=== PATIENT | female | born 1970 | race Caucasian/White ===

== ENCOUNTER 2020-07-28 19:58 | Inpatient (IN) | payer OTHER ==
[~2020-07-28] VITALS: Ht 167.6 cm; Wt 50.3 kg
[2020-07-28 23:33] LABS: HEMOGLOBIN 16.4 gm/dl (12.3-15.3); RED BLOOD COUNT 5.42 M/UL (4.00-5.10); WHITE BLOOD COUNT 9.6 K/UL (4.5-11.0)
[2020-07-28 23:48] LABS: BUN/CREATININE RATIO 12 (0-10)
[2020-07-29] MEDS ORDERED: VITAMIN D21250 MCG PO (08:43)
[2020-07-29] MEDS ORDERED: LEVOTHYROXINE150 MCG PO (08:44)
[2020-07-29] MEDS ORDERED: HYDROCODON-ACE1 EAC2 PO (08:44)
[2020-07-29] MEDS ORDERED: HYDROCORTISONE5 MG PO ×2 (08:45→08:46)
[2020-07-29] MEDS ORDERED: CITALOPRAM HBR10 MG PO (08:46)
[2020-07-29] MEDS ORDERED: TIZANIDINE HCL4 MG PO (08:47)
[2020-07-30 02:52] LABS: HEMOGLOBIN 13.6 gm/dl (12.3-15.3); RED BLOOD COUNT 4.59 M/UL (4.00-5.10); WHITE BLOOD COUNT 4.8 K/UL (4.5-11.0)
[2020-07-30 03:50] LABS: BUN/CREATININE RATIO 22 (0-10)
[2020-07-31 03:15] LABS: HEMOGLOBIN 12.1 gm/dl (12.3-15.3)
[2020-07-31 03:17] LABS: RED BLOOD COUNT 4.09 M/UL (4.00-5.10); WHITE BLOOD COUNT 9.8 K/UL (4.5-11.0)
[2020-07-31 03:29] LABS: BUN/CREATININE RATIO 26 (0-10)
[2020-07-31] MEDS ORDERED: ZITHROMAX500 MG PO (13:33)
[2020-07-31] MEDS ORDERED: CEFPODOXIME PR200 MG PO (13:33)
== END 2020-07-31 16:01 | disposition home or self-care (01) | DRG 189 ==
LOC: ER1 19:58 → CDU 07-29 03:16 → M/S 07-29 13:57
PROVIDERS: Internal Medicine; Physician Assistant; Physician Assistant Medical; ADMIT Internal Medicine
PROC: 8E0ZXY6 Isolation (ICD-10-PCS; principal; 2020-07-29)
DX: J96.01 Acute respiratory failure with hypoxia (principal); J18.9 Pneumonia, unspecified organism; Z68.1 Body mass index [BMI] 19.9 or less, adult; E27.40 Unspecified adrenocortical insufficiency; J43.2 Centrilobular emphysema; E87.6 Hypokalemia; Z20.822 Contact with and (suspected) exposure to COVID-19; R63.6 Underweight; E03.9 Hypothyroidism, unspecified; F41.9 Anxiety disorder, unspecified; F32.9 Major depressive disorder, single episode, unspecified; K76.0 Fatty (change of) liver, not elsewhere classified; Z86.718 Personal history of other venous thrombosis and embolism; Z79.01 Long term (current) use of anticoagulants; Z85.820 Personal history of malignant melanoma of skin; Z90.49 Acquired absence of other specified parts of digestive tract; Z90.710 Acquired absence of both cervix and uterus; Z88.0 Allergy status to penicillin; Z88.8 Allergy status to other drugs, medicaments and biological substances; Z88.1 Allergy status to other antibiotic agents; Z87.891 Personal history of nicotine dependence
CPT/HCPCS: 0240U; 36415; 36600; 71045; 80048; 80053; 82550; 82553; 82803; 83605; 84484; 85025; 85379; 87040; 93005; 94640; 94664; 94760; 96365; 96366; 96375; 99285; J0456; J0696; J1100; J1335; J1650; J2405; J7030; Q9967; U0002

== ENCOUNTER 2021-03-19 19:59 | Inpatient (IN) | payer OTHER ==
[~2021-03-19] VITALS: Ht 167.6 cm; Wt 45.8 kg
[~2021-03-19 19:59] MED LIST: CEFPODOXIME PR200 MG PO; CITALOPRAM HBR10 MG PO; HYDROCODON-ACE1 EAC2 PO; HYDROCORTISONE5 MG PO; LEVOTHYROXINE150 MCG PO; TIZANIDINE HCL4 MG PO; VITAMIN D21250 MCG PO; ZITHROMAX500 MG PO
[2021-03-19 21:03] LABS: HEMOGLOBIN 14.8 gm/dl (12.3-15.3); RED BLOOD COUNT 4.97 M/UL (4.00-5.10); WHITE BLOOD COUNT 15.8 K/UL (4.5-11.0)
[2021-03-19 21:17] LABS: BUN/CREATININE RATIO 17 (0-10)
[2021-03-20 07:41] LABS: HEMOGLOBIN 13.7 gm/dl (12.3-15.3); WHITE BLOOD COUNT 17.8 K/UL (4.5-11.0)
[2021-03-20 07:42] LABS: RED BLOOD COUNT 4.47 M/UL (4.00-5.10)
[2021-03-20 08:16] LABS: BUN/CREATININE RATIO 17 (0-10)
[2021-03-21 06:55] LABS: RED BLOOD COUNT 3.94 M/UL (4.00-5.10)
[2021-03-21 07:39] LABS: BUN/CREATININE RATIO 7 (0-10)
[2021-03-22 06:53] LABS: HEMOGLOBIN 11.3 gm/dl (12.3-15.3); RED BLOOD COUNT 3.66 M/UL (4.00-5.10)
[2021-03-22 07:04] LABS: WHITE BLOOD COUNT 5.6 K/UL (4.5-11.0)
[2021-03-22 08:29] LABS: BUN/CREATININE RATIO 6 (0-10)
[2021-03-23 07:57] LABS: HEMOGLOBIN 11.8 gm/dl (12.3-15.3)
[2021-03-23 08:02] LABS: WHITE BLOOD COUNT 3.9 K/UL (4.5-11.0)
[2021-03-23 08:09] LABS: BUN/CREATININE RATIO 5 (0-10)
[2021-03-23] MEDS ORDERED: OMNICEF 300 MG300 MG PO (12:21)
== END 2021-03-23 14:10 | disposition home or self-care (01) | DRG 871 ==
LOC: ER1 19:59 → CDU 03-20 08:23 → M/S 03-20 17:25
PROVIDERS: Emergency Medicine; Physician Assistant Medical; ADMIT Internal Medicine
DX: A41.9 Sepsis, unspecified organism (principal); J18.9 Pneumonia, unspecified organism; G93.41 Metabolic encephalopathy; E27.40 Unspecified adrenocortical insufficiency; E87.2 Acidosis; E44.0 Moderate protein-calorie malnutrition; Z68.1 Body mass index [BMI] 19.9 or less, adult; E87.6 Hypokalemia; R63.6 Underweight; Z20.822 Contact with and (suspected) exposure to COVID-19; E03.9 Hypothyroidism, unspecified; Z85.828 Personal history of other malignant neoplasm of skin; Z92.3 Personal history of irradiation; Z92.21 Personal history of antineoplastic chemotherapy; Z86.718 Personal history of other venous thrombosis and embolism; Z90.710 Acquired absence of both cervix and uterus; Z90.49 Acquired absence of other specified parts of digestive tract; Z88.0 Allergy status to penicillin; Z82.49 Family history of ischemic heart disease and other diseases of the circulatory system; Z83.3 Family history of diabetes mellitus
CPT/HCPCS: 36415; 36600; 70450; 71045; 71260; 80053; 81001; 82550; 82553; 82803; 82962; 83605; 83690; 83735; 83874; 83880; 84100; 84132; 84439; 84443; 84484; 85025; 85027; 85610; 85730; 87040; 87086; 94760; 96365; 96366; 96375; 99285; C9113; J0456; J0696; J1650; J2405; J3010; J7030; J7050; Q9967; U0002